=== PATIENT | female | born 1980 | race Caucasian/White ===

== ENCOUNTER 2020-05-04 17:12 | Inpatient (IN) | payer OTHER ==
[~2020-05-04] VITALS: Ht 167.6 cm; Wt 81.6 kg
[2020-05-04 17:18] VITALS: BP 162/79
[2020-05-04 17:30] LABS: ICTOTEST (BILI CONFIRMATORY) Negative (Negative); URINE BILIRUBIN 1+ (Negative); URINE BLOOD NEGATIVE (Negative); URINE CLARITY CLEAR; URINE COLOR YELLOW; URINE GLUCOSE-RANDOM* TRACE (Negative); URINE KETONES NEGATIVE (Negative); URINE LEUKOCYTES-REFLEX NEGATIVE (Negative); URINE NITRITE-REFLEX NEGATIVE (Negative); URINE PROTEIN (DIPSTICK) 2+ (Negative); URINE SPECIFIC GRAVITY 1.015 (1.005-1.035); URINE UROBILINOGEN >= 8.0 E.U./dl (0.2-1.0)
[2020-05-04 17:40] LABS: CASTS None Seen /LPF (None Seen); CRYSTALS None Seen /LPF (None Seen); SQUAMOUS None Seen /LPF (0-3); URINE RBC None Seen /HPF (0-2); URINE WBC-REFLEX None Seen /HPF (0-5)
[2020-05-04] MEDS ORDERED: ZANTAC PO (18:32)
[2020-05-04 19:08] LABS: ABSOLUTE NEUTROPHILS 6.1 thou/uL (1.4-8.2); BASOPHILS 0.2 % (0.0-2.0); EOSINOPHILS 0.1 % (0.0-3.0); HEMATOCRIT 39.5 % (37.0-47.0); HEMOGLOBIN 13.6 gm/dL (12.0-15.0); LYMPHOCYTES 6.4 % (24.0-44.0); MCH 29.2 pg (26.0-34.0); MCHC 34.4 g/dL (28.0-37.0); MCV 84.8 fL (80.0-100.0); MONOCYTES 2.6 % (1.0-8.0); POLYS 90.7 % (36.0-66.0); RBC 4.66 mil/uL (4.20-5.00); RDW 14.6 % (10.5-14.5); WBC 6.8 thou/uL (4.0-11.0)
[2020-05-04 19:20] LABS: CALCIUM 8.6 mg/dL (8.5-10.1); CREATININE 0.7 mg/dL (0.6-1.0); POTASSIUM 3.6 mmol/L (3.5-5.1)
[2020-05-04 19:27] LABS: ALBUMIN 3.8 g/dL (3.4-5.0); TOTAL BILIRUBIN 1.4 mg/dL (0.2-1.0); TOTAL PROTEIN 7.8 g/dL (6.4-8.2)
[2020-05-04 19:38] LABS: ANISOCYTOSIS 1+; LARGE PLATELETS OCCASIONAL
[2020-05-04 19:42] LABS: PLATELET COUNT 218 thou/uL (150-400)
[2020-05-04 22:35] VITALS: BP 163/79
[2020-05-04 22:40] VITALS: BP 172/76
[2020-05-04 22:49] VITALS: BP 154/93
[2020-05-05 00:17] LABS: CHOLESTEROL 162 mg/dL (<200); HDL CHOLESTEROL 46 mg/dL (>40); LDL CHOLESTEROL 108 mg/dL (<100); TC:HDL 3.5 Ratio (Not establshd); TRIGLYCERIDE 42 mg/dL (<150); VLDL 8 mg/dL (<40)
[2020-05-05 00:18] LABS: SERUM ASSESSMENT Clear
--- NOTE | 2020-05-05 01:06 | NUR ---
PATIENT ARRIVED VIA W/C WITH RN FROM ED AT 2249 ON 05/04/2020. ALERT AND ORIENTED X4. UP ADLIB TO BATHROOM. C/O RIGHT UPPER QUAD ABDOMINAL PAIN. MEDICATED WITH DILAUDID WITH GOOD RESULTS. SCD'S IN PLACE. THIS NURSE CALLED PHOTONICS TECHNICIAN REGARDING BP OF 154/93 WITH PULSE OF 47. NO ORDERS GIVEN AT THIS TIME. WILL MONITOR. PATIENT IS NON SYMPTOMATIC. DOMINANT LANGUAGE IS SLOVAK, HOWEVER, PATIENT UNDERSTANDS NIGERIEN WELL AND WHEN IN QUESTION USES AP ON PHONE FOR TRANSLATION. NO PROBLEM WITH ADMISSION INFORMATION. RESTING QUIETLY AT TIME OF NOTE.
--- NOTE | 2020-05-05 03:39 | NUR ---
PATIENT HAS BEEN NPO SINCE 05/04/2020 AT 2359. NAUSEA W/O EMESIS. PAIN MEDICATION X2 AT TIME OF NOTE. SCD'S IN PLACE. IVF INFUSING W/O COMPLICATION. COOPERATIVE WITH CARE. WILL MONITOR. RESTING QUIETLY.
[2020-05-05 05:02] VITALS: BP 143/74
[2020-05-05 06:29] LABS: HEMOGLOBIN 13.3 gm/dL (12.0-15.0); MCH 28.5 pg (26.0-34.0); MCHC 33.3 g/dL (28.0-37.0); MCV 85.7 fL (80.0-100.0); RBC 4.67 mil/uL (4.20-5.00); RDW 14.5 % (10.5-14.5); WBC 9.6 thou/uL (4.0-11.0)
[2020-05-05 06:36] LABS: ALBUMIN 3.7 g/dL (3.4-5.0); CALCIUM 8.6 mg/dL (8.5-10.1); CREATININE 0.6 mg/dL (0.6-1.0); POTASSIUM 3.4 mmol/L (3.5-5.1); TOTAL BILIRUBIN 2.8 mg/dL (0.2-1.0); TOTAL PROTEIN 7.7 g/dL (6.4-8.2)
[2020-05-05 07:04] VITALS: BP 160/84
[2020-05-05 15:45] VITALS: BP 145/88
--- NOTE | 2020-05-05 20:28 | NUR ---
PATIENT PLEASANT AND COOPERATIVE WITH POC OF CARE IS [place] CITIZEN SPEAKING BUT COMMUNICATES WELL ENOUGH IN [place] TO UNDERSTAND HER POC. 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 PATIENT PAIN IS MANAGED WELL BY IV DILAUDID AND ONLY HAD ONE EPISODE OF EMESIS TODAY BUT REFUSED NAUSEA MEDS. PATIENT STARTED ON CLEAR LIQUIDS AND IS HAPPY WITH HER INTACT WITH NO NAUSEA OR VOMITING. PATIENT UNDERSTANDS THAT SHE WILL CONTINUE WITH PAIN MANAGEMENT AND ANTIBIOTICS UNTIL PROCEDURE ON THURSDAY. DR CHACON WAS CONSULTED TODAY. SEE HIS NOTE.
--- NOTE | 2020-05-06 02:49 | NUR ---
PATIENT ALERT AND ORIENTED X4. UP ADLIB TO BATHROOM. DENIES PAIN AND NAUSEA. IVF INFUSING W/O COMPLICATION. ADVANCED TO CLEAR LIQUID DIET ON AM SHIFT AND TOLERATING WELL. WILL MONITOR. RESTING QUIETLY.
[2020-05-06 05:43] LABS: BASOPHILS 0.3 % (0.0-2.0); EOSINOPHILS 5.5 % (0.0-3.0); HEMATOCRIT 37.1 % (37.0-47.0); HEMOGLOBIN 12.5 gm/dL (12.0-15.0); LYMPHOCYTES 12.5 % (24.0-44.0); MCH 28.9 pg (26.0-34.0); MCHC 33.6 g/dL (28.0-37.0); MONOCYTES 8.3 % (1.0-8.0); PLATELET COUNT 184 thou/uL (150-400); POLYS 73.4 % (36.0-66.0); RBC 4.32 mil/uL (4.20-5.00); RDW 15.1 % (10.5-14.5); WBC 6.8 thou/uL (4.0-11.0)
[2020-05-06 06:07] LABS: ALBUMIN 3.2 g/dL (3.4-5.0); CALCIUM 8.3 mg/dL (8.5-10.1); CREATININE 0.6 mg/dL (0.6-1.0); POTASSIUM 3.1 mmol/L (3.5-5.1); TOTAL BILIRUBIN 4.8 mg/dL (0.2-1.0); TOTAL PROTEIN 6.8 g/dL (6.4-8.2)
[2020-05-06 07:34] VITALS: BP 131/81
--- NOTE | 2020-05-06 14:02 | HC ---
[facility] [place] [address] CONSULTATION Name: NOBLE CORTEZ Room #: 459-P ADM IN M.R.#: [id number] Admission: 05/04/20 Attend Phys: Emilio Roberts MD Discharge: Date of : 82 Report #: [id number] THIS REPORT FOR: cc: [facility] - No family physician/PCP FAM - No family physician/PCP Figueroa Dunbar MD ~ CC: [facility] physician/PCP Emilio Roberts GI CONSULT HISTORY OF PRESENT ILLNESS: The patient is a 39-year-old female I have been asked to see for further evaluation of her GI problems. She has had increasing right upper quadrant and epigastric abdominal pain and was found to have cholelithiasis as well as possible choledocholithiasis. Apparently on CT scan, she had evidence of significant dilation of the common bile duct. Her medical history is well outlined in the chart, but includes no allergies. She has gastroesophageal reflux disease, but is otherwise healthy. She denies alcohol or tobacco consumption. REVIEW OF SYSTEMS: Negative for weight loss, weakness or fatigue. She denies head, eyes, ears, nose or throat complaints. Denies chest pain, chest palpitation, chest pressure, cough, shortness of breath, wheezing, genitourinary, musculoskeletal or neuropsychiatric complaints otherwise. PHYSICAL EXAMINATION: GENERAL: Afebrile. VITAL SIGNS: Stable. NECK: No JVD, thyromegaly or bruits. CARDIOVASCULAR: Regular. LUNGS: Not examined. ABDOMEN: Soft, nondistended, normoactive bowel sounds. EXTREMITIES: Not performed. NEUROLOGIC: Not performed. RECTAL: Not performed. PERTINENT LABORATORY DATA: Include white count 6.8, hemoglobin 13.6. Serum chemistry notable for glucose 158, total bilirubin 1.4, up to 2.8; AST 820 up to 1295, ALT 697 up to 1510 and alkaline phosphatase 166, up to 209. Review of x-rays reveals abdominal ultrasound with dilated common bile duct with intrahepatic biliary dilatation up to 12 mm and then cholelithiasis with sludge. CT reveals mild intrahepatic biliary dilatation. No definitive cholelithiasis. ASSESSMENT: In summary, the patient has cholelithiasis and possible choledocholithiasis. She has significant elevation of her liver tests. She has mild dilation of the common bile duct by ultrasound. We will proceed with MRCP [address] [address] CONSULTATION Name: NOBLE CORTEZ Room #: 459-P [facility] IN M.R.#: [id number] Admission: 05/04/20 Attend Phys: Emilio Roberts MD Discharge: Date of : 82 Report #: [id number] to exclude common bile duct stones, ERCP on Thursday, if indeed these are present. If she has no common bile duct stones and her liver test trend down, she could be discharged for elective cholecystectomy. She is largely asymptomatic currently. I appreciate the opportunity to participate in her care. We will follow concurrently. <ELECTRONICALLY SIGNED> By: Figueroa Dunbar MD 05/06/20 1402 1011 1921 Figueroa Dunbar MD /nt
[2020-05-06 14:55] VITALS: BP 127/78
--- NOTE | 2020-05-06 19:12 | NUR ---
A/O, calm and cooperative. tolerated clear liquid well, no n/v, denied pain.
[2020-05-06 20:25] VITALS: BP 124/65
--- NOTE | 2020-05-07 01:17 | NUR ---
ASSUMED CARE OF PT AT 1900. PT IS A/O X4. VSS. NO COMPLAINTS OF PAIN OR NAUSEA. DOES C/O BACK PAIN BUT DIDNT WANT ANY PAIN MEDICATION. NPO AT MIDNIGHT AWAITING PROCEDURE. TRANSFERED PT TO 439. REPORT GIVEN TO NURSE.
--- NOTE | 2020-05-07 02:07 | NUR ---
PT TRANSFERRED TO UNIT APPROXIMATELY AT 0100. PT AOX4. PT DENIES PAIN AND SOB. PT HAS PRN IV DILAUDID Q4HR AVAILABLE. PT WITHOUT N/V. PT RESTING IN BED UPON ARRIVAL. PT TRANSFERRING FROM TO BED INDEPENDENTLY. PT REMAINS NPO OF MIDNIGHT. ENCOURAGED PT TO NOTIFY STAFF WITH ALL NEEDS. CALL LIGHT WITHIN REACH, BED ALARM ON, BED IN LOWEST POSITION. WILL CONTINUE TO MONITOR.
[2020-05-07 05:48] LABS: BASOPHILS 0.6 % (0.0-2.0); EOSINOPHILS 9.3 % (0.0-3.0); HEMATOCRIT 37.8 % (37.0-47.0); HEMOGLOBIN 12.7 gm/dL (12.0-15.0); LYMPHOCYTES 24.8 % (24.0-44.0); MCHC 33.6 g/dL (28.0-37.0); MCV 86.3 fL (80.0-100.0); MONOCYTES 9.7 % (1.0-8.0); PLATELET COUNT 174 thou/uL (150-400); POLYS 55.6 % (36.0-66.0); RBC 4.38 mil/uL (4.20-5.00); RDW 15.4 % (10.5-14.5); WBC 3.7 thou/uL (4.0-11.0)
[2020-05-07 06:31] LABS: ALBUMIN 3.2 g/dL (3.4-5.0); CALCIUM 8.4 mg/dL (8.5-10.1); CREATININE 0.6 mg/dL (0.6-1.0); TOTAL BILIRUBIN 2.3 mg/dL (0.2-1.0)
[2020-05-07 06:35] LABS: POTASSIUM 2.8 mmol/L (3.5-5.1)
[2020-05-07 07:40] VITALS: BP 128/81
--- NOTE | 2020-05-07 11:11 | NUR ---
ASSESSED AT START OF SHIFT 0700 PT A&OX4 DENIES PAIN. UP AD JORDIN TO THE BATHROOM. IV POTASSIUM STARTED. DR BERMAN STOPPED BY TO SEE PT. PT TO HAVE SX THIS AM WILL CONT TO [facility].
--- NOTE | 2020-05-07 12:10 | NUR ---
ASSESSMENT: CM REVIEWED CHART AND MET WITH PATIENT AT THE BEDSIDE. PT IS ALERT AND ORIENTED X4. PT IS TO HAVE ERCP TODAY THEN WILL POSSIBLY NEED LAP SIMON. PT REPORTS THAT SHE LIVES IN A HOUSE WITH HER AND CHILDREN. PT REPORTS BEING FULLY INDEPENDENT WITH ADLS AND AMBULATION. PT REPORTS SHE DOES NOT CURRENTLY HAVE ANY INSURANCE OR A PCP. CM PROVIDED PATIENT WITH A SAFETY NET RESOURCE PACKET. PT REPORTS SHE HAS NO FURTHER NEEDS FROM AT THIS TIME. CM WILL CONTINUE TO FOLLOW TO ASSIST NEEDED.
[2020-05-07 13:07] VITALS: BP 153/87
[2020-05-07 15:00] VITALS: BP 136/78
[2020-05-07 20:38] VITALS: BP 147/76
--- NOTE | 2020-05-07 23:50 | NUR ---
ASSUMED PT CARE AT 1900. PT A&OX4, MAL[place] SPEAKER BUT SPEAKS ENOUGH SWISS TO COMMUNICATE WITH STAFF APPROPPRIATELY. REPORTS PAIN IN BACK, BUT DID NOT WANT PAIN MEDICATION. STILL NPO, AWAITING SURGERY TOMORROW? FLUIDS INFUSING PER ORDER. UP AD JORDIN IN ROOM. CURRENTLY IN THE CHAIR TALKING ON THE [FRANSISCA WITH NO COMPLAINTS AT THIS TIME.
[2020-05-08] VITALS (9 sets, daily range): BP systolic 113–169; BP diastolic 69–88
[2020-05-08 05:55] LABS: HEMATOCRIT 37.2 % (37.0-47.0); HEMOGLOBIN 12.3 gm/dL (12.0-15.0); MCH 28.6 pg (26.0-34.0); MCHC 33.1 g/dL (28.0-37.0); MCV 86.6 fL (80.0-100.0); RBC 4.3 mil/uL (4.20-5.00); RDW 14.8 % (10.5-14.5); WBC 5.7 thou/uL (4.0-11.0)
[2020-05-08 06:33] LABS: ALBUMIN 3.1 g/dL (3.4-5.0); CALCIUM 8.2 mg/dL (8.5-10.1); CREATININE 0.6 mg/dL (0.6-1.0); POTASSIUM 3.4 mmol/L (3.5-5.1); TOTAL BILIRUBIN 1.5 mg/dL (0.2-1.0); TOTAL PROTEIN 6.9 g/dL (6.4-8.2)
--- NOTE | 2020-05-08 15:16 | NUR ---
ON-GOING ASSESSMENT: PT HAD LAP SIMON TODAY. PT ALREADY HAS SAFETY NET PACKET THAT WAS GIVEN TO HER AND REPORTS NO FURTHER NEEDS FROM CM.
--- NOTE | 2020-05-08 17:38 | NUR ---
PT IS AOX4, VSS, PAIN CONTROLLED WITH PAIN ANALGESIC. PT IS UP TO BSC, TOLERATING DIET WITHOUT N/V. 4 SURGICAL SITES ARE CLOSED WITH DERMABOND. NURSE EDUCATE PT TO USE CALL LIGHT, PT CALLS APPROP. WILL CONTINUE TO MONITOR.
--- NOTE | 2020-05-08 20:22 | P ---
[facility] [place] [address] PROCEDURE REPORT Name: NOBLE CORTEZ Room #: 439-P ADM IN M.R.#: [id number] Admission: 05/04/20 Attend Phys: Emilio Roberts MD Discharge: Date of : 82 Report #: [id number] THIS REPORT FOR: cc: [facility] - No family physician/PCP FAM - No family physician/PCP Morgan Heller MD ~ CC: Juan Proctor MD [facility] physician/PCP Emilio Roberts ERCP REPORT BRIEF HISTORY: The patient is a 39-year-old woman with cholelithiasis and choledocholithiasis. PREOPERATIVE DIAGNOSES: Cholelithiasis and choledocholithiasis. POSTOPERATIVE DIAGNOSES: Cholelithiasis and choledocholithiasis. MEDICATIONS: Intubation, general anesthesia. SPECIMEN: Multiple stones, 4 cholesterol stones, pulled into the duodenum and left in place. ESTIMATED BLOOD LOSS: 3 mL. PROCEDURE: ERCP with endoscopic sphincterotomy and stone extraction. FINDINGS: Prior to intubation and general anesthesia, the procedure of ERCP was discussed with the patient as well potential risks and its complications. She indicates she understands and desires that we proceed. DESCRIPTION OF PROCEDURE: The patient was taken to the Operating Suite and induced with general anesthesia. She was subsequently placed in the prone position. Subsequently, the Olympus side-viewing scope was inserted in the cervical esophagus and advanced through the esophagus, stomach, across the pylorus and duodenum. The papilla was identified. She had a very generous and long intraduodenal segment of the common bile duct. In addition, the mouth of the orifice of the papilla was erythematous suggesting a recent passage of stone. Initial passage of the sphincterotome resulted in deep cannulation into the biliary tree. Injection of contrast revealed multiple filling defects within the common bile duct. Common bile duct was generous in size in the range of about 10-12 mm. The stones were a size of about 4-8 mm. In addition, there was filling of the contrast into the intrahepatics and there was some mild dilation of the intrahepatics as well. A guidewire was advanced, the sphincterotome was pulled back over the sphincterotomy and a generous sphincterotomy was completed due to the long intraduodenal segment of the common [facility] [address] [place] [address] PROCEDURE REPORT Name: NOBLE CORTEZ Room #: 439-P ADM IN [facility].#: [id number] Admission: 05/04/20 Attend Phys: Emilio Roberts MD Discharge: Date of : 82 Report #: [id number] bile duct. We then passed a balloon catheter above the stones and pulled the balloon catheter down and with mild resistance, 4 stones popped out into the duodenum. They were yellow in appearance. They were of variant shape. At least one of them appeared to be faceted. We then reexamined the common bile duct and the balloon catheter was reinserted. Several additional sweeps were made. Not surprisingly, there were some air bubbles and we tamponaded the common bile duct and pulled the balloon back carefully and no additional significant filling defects were seen. I also might point out that very small fragments and debris also came from the common bile duct. As best we could see the common bile duct was clear. She does have a sphincterotomy and if small fragments or stones remained, they should pass easily. The patient tolerated the procedure well. Final images revealed a clear common bile duct. DISPOSITION: Common bile duct cleared. The patient to have laparoscopic cholecystectomy per Dr. Proctor' recommendations. <ELECTRONICALLY SIGNED> By: Morgan Heller MD 05/08/202021 1204 15 Morgan Heller MD /nt
--- NOTE | 2020-05-09 03:08 | NUR ---
ASSUMED PT CARE AT 1900. PT IS A&OX4. REPORTS MINIMAL PAIN, NOT WANTING ANY MEDICATION. PT FINISHED ONE POST OP BAG ON FLUDIS AND IS NOW SALINE LOCKED. 4 LAP SITES D/C/I. NO COMPLAINTS AT THIS TIME, ANTICIPATING D/C TODAY.
[2020-05-09 03:15] VITALS: BP 119/72
[2020-05-09 05:55] LABS: CALCIUM 8.1 mg/dL (8.5-10.1); CREATININE 0.6 mg/dL (0.6-1.0); POTASSIUM 3.2 mmol/L (3.5-5.1); TOTAL PROTEIN 6.6 g/dL (6.4-8.2)
[2020-05-09 07:30] VITALS: BP 131/82
[2020-05-09] MEDS ORDERED: LEVAQUIN 750 M750 MG PO (11:37)
[2020-05-09 12:27] VITALS: BP 131/82
--- NOTE | 2020-05-09 14:00 | NUR ---
PT ALERT AND ORIENTED TIMES FOUR. VSS. PT DENIES PAIN/SOA. SURGERY SITES INATCT. PT TOLERATES MEDS AND MEALS. PT UP AB JORDIN IN THE ROOM WITH STEADY GAIT. DISCHARGE PLANS TODAY, PT PROGRESSING TOWRADS POC GOALS.
--- NOTE | 2020-05-10 13:08 | PATH ---
[facility] [address] [place] [address] PATHOLOGY RPT PROCEDURE Name: NOBLE CORTEZ Room #: 439-P [facility] IN M.R.#: [id number] Admission: 05/04/20 Date of : 82 Discharge: 05/09/20 Report #: [id number] Path Case #: [id number] [facility] Accession Number: [id number] . 01 Material submitted: . gallbladder - GALLBLADDER . 01 Clinical history: . Choledocholithiasis . 02 Diagnosis: Gallbladder, cholecystectomy: - Mild chronic cholecystitis. - Cholelithiasis. (IUV:pit 05/09/2020) QTP 05/09/2020 1521 Local . 02 Electronically signed: . Karen Brock MD, Pathologist NPI- [id number] . 01 Gross description: . The specimen is received in formalin labeled "[place], [place], gallbladder" and consists of a punctured focally hemorrhagic pink gallbladder gallbladder measuring 7.8 x 2.6 x 1.6 cm. The margin is inked black. Opening reveals a lumen filled with smooth fragmented to multifaceted yellow calculi measuring up to 1.2 cm. The mucosa is pink and granular with focal erosion and an average wall thickness of 0.2-0.3 cm. No masses are identified. Intern Product Marketing Manager sections are submitted in A1. (SDY; 05/08/2020) SYU/SYU 05/08/2020 1529 Local . 02 Pathologist provided ICD-10: K80.10 . 02 CPT . 855905 Specimen Comment: A courtesy copy of this report has been sent to [phone] Specimen Comment: [id number] Specimen Comment: Report sent to / DR BLISS Specimen Comment: A duplicate report has been generated due to demographic updates. Performed at: [address], [place] [id number] MD Juan Jones MD Phone: [phone] [address] [address] PATHOLOGY RPT PROCEDURE Name: SARAH CORTEZWILLIAM Room #: 439-P DIS IN M.R.#: [id number] Admission: 05/04/20 Date of : 82 Discharge: 05/09/20 Report #: [id number] Path Case #: [id number] Performed at: [address] [facility] [address] [id number] MD Karen Brock MD Phone: [phone]
== END 2020-05-09 14:13 | disposition home or self-care (01) | DRG 419 ==
LOC: ER 17:12 → EROBS 22:35 → 4W 22:46 → 4S 05-07 01:10
PROVIDERS: Emergency Medicine; Nurse Practitioner; Nurse Practitioner Family; Physician Assistant; Surgery; ADMIT Hospitalist; ATTEND Hospitalist
PROC: 0FC98ZZ Extirpation of Matter from Common Bile Duct, Via Natural or Artificial Opening Endoscopic (ICD-10-PCS; principal; 2020-05-04)
PROC: BF101ZZ Fluoroscopy of Bile Ducts using Low Osmolar Contrast (ICD-10-PCS; principal; 2020-05-04)
PROC: 0FT44ZZ Resection of Gallbladder, Percutaneous Endoscopic Approach (ICD-10-PCS; 2020-05-08)
DX: K80.60 Calculus of gallbladder and bile duct with cholecystitis, unspecified, without obstruction (principal); K21.9 Gastro-esophageal reflux disease without esophagitis; Z03.818 Encounter for observation for suspected exposure to other biological agents ruled out; Z79.899 Other long term (current) drug therapy
CPT/HCPCS: 10040; 10195; 50010; 50101; 50249; 50411; 50555; 50558; 51297; 51489; 52265; 52266; 53307; 53310; 53312; 54022; 54118; 55245; 56462; 56525; 56526; 62110; 62900; 70005